=== PATIENT | male | born 1975 | race Caucasian/White ===

== ENCOUNTER 2024-12-22 10:50 | Emergency (ER) | payer BC ==
[2024-12-22] MEDS ORDERED: Sodium Chloride 0.9% 10 ML Syringe FLUSH PRN (10:56)
[2024-12-22 11:07] LABS: BASOPHILS ABSOLUTE AUTO 0.05 10^3/uL (0.00-0.10); BASOPHILS PERCENT AUTO 0.7 % (0.0-1.0); EOSINOPHILS ABSOLUTE AUTO 0.04 10^3/uL (0.10-0.30); EOSINOPHILS PERCENT AUTO 0.5 % (1.0-3.0); HEMATOCRIT 50.4 % (40.0-52.0); HEMOGLOBIN 15.8 g/dL (13.0-17.0); IMMATURE GRAN ABSOLUTE AUTO 0.02 10^3/uL (0.00-0.04); IMMATURE GRAN PERCENT AUTO 0.3 % (0.0-0.4); LYMPHOCYTES ABSOLUTE AUTO 2.36 10^3/uL (1.00-4.00); LYMPHOCYTES PERCENT AUTO 32.4 % (20.0-40.0); MEAN CORPUSCULAR HGB CONC 31.3 g/dL (32.0-36.0); MEAN PLATELET VOLUME 10.3 fL (7.4-10.4); MONOCYTES ABSOLUTE AUTO 0.78 10^3/uL (0.10-0.80); MONOCYTES PERCENT AUTO 10.7 % (2.0-8.0); NEUTROPHILS ABSOLUTE AUTO 4.04 10^3/uL (2.50-7.00); NEUTROPHILS PERCENT AUTO 55.4 % (50.0-70.0); PLATELET COUNT,PLT 273 10^3/uL (150-400); RED BLOOD CELL COUNT 5.86 10^6/uL (4.50-6.00); RED CELL DISTRIBUTION WIDTH 17.8 % (11.5-14.5); WHITE BLOOD CELL COUNT,WBC 7.29 10^3/uL (5.00-10.00)
[2024-12-22] MEDS ORDERED: Heparin Sodium 5,000 Units/ML Vial IVPUSH ONE (11:10)
[2024-12-22 11:13] VITALS: BP 131/103; PULSE 117
[2024-12-22] MEDS: Heparin Sodium/D5W 250 ML IV SCH (11:22)
[2024-12-22] MEDS: Heparin Sodium 5,000 Units/ML Vial IVPUSH ONE (11:22)
[2024-12-22 11:26] LABS: ALBUMIN 4.03 g/dL (3.40-5.00); ANION GAP 17.4 mmol/L (5-15); BILIRUBIN TOTAL 2.4 mg/dL (0.2-1.0); C-REACTIVE PROTEIN 1.05 mg/dL (0.00-0.50); CALCIUM 9.7 mg/dL (8.7-10.3); CARBON DIOXIDE,CO2 24.2 mmol/L (21.0-32.0); CREATININE 1.27 mg/dL (0.51-1.17); EST CRCL DRUG DOSING (CG) 76.58 mL/min; MAGNESIUM 1.9 mg/dL (1.8-2.4); POTASSIUM,K 4.6 mmol/L (3.5-5.1); PROTEIN TOTAL,TP 8.2 g/dL (6.4-8.2)
[2024-12-22 11:32] LABS: PTT,PARTIAL THROMBOPLSTIN TIME 26.5
[2024-12-22] MEDS: Sodium Chloride 0.9% 50 ML IV ONE (11:45)
[2024-12-22] MEDS: Sodium Chloride 0.9% 100 ML IV ONE (11:46)
[2024-12-22] MEDS: Iopamidol 755 Mg/ML 100 ML Bottle IV ONE (11:46)
[2024-12-22] MEDS: Furosemide 40 MG/4 ML VIAL IVPUSH ONE (11:50)
== END 2024-12-22 15:00 | disposition home or self-care (01) ==
LOC: KA.ED 10:50
DX: I44.7 Left bundle-branch block, unspecified (principal); I42.0 Dilated cardiomyopathy; I24.0 Acute coronary thrombosis not resulting in myocardial infarction; I11.0 Hypertensive heart disease with heart failure; I50.43 Acute on chronic combined systolic (congestive) and diastolic (congestive) heart failure; E78.00 Pure hypercholesterolemia, unspecified; R79.89 Other specified abnormal findings of blood chemistry; K21.9 Gastro-esophageal reflux disease without esophagitis; Z79.01 Long term (current) use of anticoagulants; Z79.899 Other long term (current) drug therapy
CPT/HCPCS: 36415; 71275; 80053; 83605; 83735; 83880; 84484; 85025; 85379; 85730; 86140; 93005; 93010; 96365; 96366; 96375; 99284; 99285-25; J1644; J1940; Q9967